=== PATIENT | male | born 1975 | race Caucasian/White ===

== ENCOUNTER 2021-01-09 15:20 | Outpatient (RCR) | payer OTHER, SELFPAY | END 2021-03-24 23:59 | LOC: IMMUN 15:20 | PROVIDERS: PCP Family Medicine; Visit Provider Family Medicine | DX: Z23 Encounter for immunization (principal) | CPT/HCPCS: 0001A; 0002A; 91300 ==

== ENCOUNTER 2021-02-20 09:00 | Outpatient (RCR) | payer OTHER, SELFPAY ==
--- NOTE | 2021-01-30 07:58 | HP.PTEVAL_ITS ---
Patient's Visit Information JORDI NELSON is a 45 year old M referred to Physical Therapy by Dr. Jagjit Harrison MD with a diagnosis of R hip pain. Date of Evaluation: 01/30/21 Physical Therapist: Artemio Ma, EZEQUIELT, OCS, CSCS - Visit Plan Frequency: 3x /Week Duration: 4-6 Weeks Plan: 3x/week for 4-6 weeks for. 1. manual r hip mobs ext adn IR, PROM and leg pull. Stretching hip flexors , HS, quad, piriformis adn rollout prior. Emphasize hip ext rom and anterior hip mobs and leg pull. 2. strengthen R hip stabs. 3. gait training, activitiy modification. 4. TENS with ice as needed. - Subjective R hip pain for last two months. Feels swollen and joint tipped forward. It is consistently there. 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 Icing helps. On feet worse. 7/10 after practice. Improves with sitting. Morning is not as bad. Steps are not a problem, flat ground hurts. 2/10 walking this am. 0/10 in am. Not sure why it started two months ago. Jammed it last by jumping for flyball last fall. Not sure if that hurt it. Sleep is typically OK. Comfortable on couch with knee up. 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 Hurts at work at times but better at desk. Hobbies: kids sports and hunting. 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 Would not golf right now. Could not. Basic ADLs are OK. - Pain R groin Pain Intensity (Out of 10): 1 Pain Intensity Range: 0, 7 Comment: laterally also - Objective R hip pain and antalgia avoiding hip extension in gait pattern by post rotation of pelvis. I gait. I transfers, painful to lift R leg. steps are normal. reflexes 2/3 patella and achilles. Sensation LE WNL to gross light touch. Strength in ankles and knees adn AROM in these joints is WNL. Flexibility in quad is mild deficits adn HS min deficits at -20 90/90 test. AROM R hip flexion 90 pain 125 L. abduction 15 r tight end feel and 25 L. IR 5 R and 15 L pain on R. ext rotation 40 R and 45 L. extension 5 R and 13 L. Pain on R. Weakness apparent due to pain in R hip abductors, extension at 3+, flexiona t 4- vs 4+ in other hip. + SCOUR R. + FADDIR R. slight + JUAN DIEGO. R - Goals Goal 1:: Improve hip ROM R to symmetrical with L without pain or hesitation Goal Time Frame: 4-6 Weeks Goal 2:: Patient walk without gait deviations in community Goal Time Frame: 4-6 Weeks Goal 3:: Pt feel 80% back to normal acitivity Goal Time Frame: 4-6 Weeks Goal 4:: LEFS 65/80 Goal Time Frame: 4-6 Weeks Goal 5:: I management of condition with exercises Goal Time Frame: 4-6 Weeks - Rehabilitation Potential Physical Therapy Diagnosis: R hip pain , possible labral pathology limiting function Rehabilitation Potential: Fair - Anticipated Interventions Patient/Client Instruction: Educate patient on: Condition, Plan of Care For the Purpose of:: To decrease pain, To increase ROM, To improve muscle performance and motor function, To increase tolerance to activity/condition/position, To improve gait and locomotor functions Therapeutic Exercise to Include: Strength training, Flexibilty training, Gait and locomotor training, Passive ROM, Active ROM For the Purpose of:: To decrease pain, To increase ROM, To improve muscle performance and motor function, To increase tolerance to activity/condition/position, To improve gait and locomotor functions Manual Therapy Techniques to Include: Mobilization, Soft tissue mobilization For the Purpose of:: To decrease pain, To increase ROM, To improve nutrient del agnes to tissue, To increase tolerance to activity/condition/position TENS: Yes Cryotherapy (ice pack, ice massage): Yes For the Purpose of:: To decrease pain, To decrease swelling/inflammation Thank you for the opportunity to evaluate your patient. For Medicare and Medicare HMO plans, please review the plan of care and approve it. It will need to be FAXED BACK to us at [phone] for Medicare purposes. For Medicare only, by signing this I certify the plan of care. Please let me know if there are questions or concerns regarding this plan of care. Physician Signature: Date:
--- NOTE | 2021-02-20 09:19 | HP.PTDCSUM_ITS ---
It has been my pleasure to treat JORDI NELSON referred by Dr. Jagjit Harrison MD, with the diagnosis of R hip pain for a total of 9 visit(s). Discharge Date: 02/20/21 Please see the following information for a summary of their discharge status. Subjective: Was doing better but fell Tuesday onto hip in truck adn has hurt since. Was 30% better prior. Was having pain 2-5/10 intermittently and worse with being on feet. This week up to 05/26 since he fell and the same pain. Sleep is better than it had been. Can now sleep on side. Activities nto improving as far as weight bearing goes. 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 No f/u scheduled to doctor. Doing home strength but limmited with pain. R groin Pain Intensity (Out of 10): 2 % Improvement: 30 Objective/Function: ROM no major changes from initial eval. Still very painful and limited in IR adn ER at R hip . Flexion limited to 100 and painful. Weakness in ext, abd, er, ir at 4- and pain with IR/ER. Overall was slowly improving prior to misstep in truck 3 days ago and is now back to no better overall. Clinically is suspicious of labral pathology in R hip Goal 1:: Improve hip ROM R to symmetrical with L without pain or hesitation Goal Progress: Not Progressing Goal 2:: Patient walk without gait deviations in community Goal Progress: Not Progressing Goal 3:: Pt feel 80% back to normal acitivity Goal Progress: Not Progressing Goal 4:: LEFS 65/80 Goal Progress: Not Progressing Goal 5:: I management of condition with exercises Goal Progress: not helping. Plan: back to doctor for next medical step, pt to call adn set up appointment. d/c PT Discharge Comments: Pt to contact doctor due to lack of progress for next appropriate medical step(MRI, ortho?) If there are questions or concerns regarding this patient's physical therapy, please feel free to call me at [phone]. Thank you for the referral of this patient. Sincerely, Artemio Ma, DPT, OCS, CSCS
== END 2021-02-20 12:00 | disposition home or self-care (01) ==
LOC: PT 09:00
PROVIDERS: PCP Family Medicine; Referring Provider Family Medicine; Visit Provider Family Medicine
DX: M25.551 Pain in right hip (principal); J30.9 Allergic rhinitis, unspecified; M54.5 Low back pain
CPT/HCPCS: 97110; 97140; 97162; 97164

== ENCOUNTER → 2021-03-20 10:03 | Outpatient (CLI) | payer OTHER, SELFPAY ==
--- NOTE | 2021-03-20 10:33 | RAD_ITS ---
CLINICAL HISTORY: Male, 45 years old. Right hip pain. PROCEDURE: ARTHROGRAM - RIGHT HIP CONSENT: The procedure as well as benefits and possible complications including bleeding and infection were expanded to the patient. Informed consent was obtained. FLUOROSCOPY TIME (if supplied): (48 seconds) minutes/seconds Injection Information: 10 cc of dilute MRI contrast. Number of images obtained: 1 TECHNIQUE: (All elements of maximal sterile barrier technique followed, including US elements as applicable) The patient was in the supine position. The overlying skin was prepped and draped in usual sterile fashion. Following local anesthetic application and under direct fluoroscopic guidance, a 22-gauge spinal needle was placed into the hip joint. 2 cc of ISOVUE 300 was injected for confirmation. Following this, 10 cc of dilute MRI contrast was injected. The patient tolerated the procedure well. MRI will follow. RAD/Arthrogram Hip w/ MRI IMPRESSION: Successful right hip arthrogram for MRI examination. Electronically Signed: Alejandro Dent MD at 11:14 EDT , Service support ,
--- NOTE | 2021-03-20 10:43 | MRI_ITS ---
STUDY: MR RIGHT HIP ARTHROGRAPHY REASON FOR EXAM: Right hip pain for 2-3 months, no specific injury. TECHNIQUE: Standardized fat and water weighted pulse sequences were obtained in all 3 orthogonal planes after intra-articular instillation of 0.08 mL of dilute gadolinium. COMPARISON: Fluoroscopic image from arthrogram preceding MRI. FINDINGS: There is mild chondral thinning of the right hip joint (T1 sagittal image 9). Normal acetabulum. There is a tear of the anterosuperior labrum (JUAN DIEGO images 10, 11). There is avascular necrosis of the femoral head with mild bone edema of the femoral head and neck (T2 coronal images 14-17; T2 sagittal images 7-12). Normal gluteus minimus, medius and iliopsoas tendons and distal insertions. There is no trochanteric, iliopsoas or iliopectineal bursitis. Normal visualized superior and inferior pubic rami. Normal ischial tuberosity. Normal origin of the hamstring tendons. Normal visualized iliac wing. Normal visualized soft tissue structures of the pelvis. MRI/Lower Ext/Jt Only/W Contrast IMPRESSION: Avascular necrosis of the right femoral head. Mild chondral thinning of the right hip joint. Anterosuperior labral tear. Electronically Signed: Sam Blanchard MD at 13:11 EDT Tel , Service support ,
== END ==
PROVIDERS: PCP Family Medicine; Referring Provider Physician Assistant Surgical; Visit Provider Physician Assistant Surgical
DX: S73.191A Other sprain of right hip, initial encounter (principal)
CPT/HCPCS: 27093; 73722; 77002; A9575; Q9967

== ENCOUNTER 2022-11-17 11:00 | Outpatient (RCR) | payer OTHER, SELFPAY ==
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
--- NOTE | 2022-10-22 16:09 | HP.PTREVAL_ITS ---
NIC VELIZ, It has been my pleasure to treat JORDI NELSON over the last 11 visits for S/P RIGHT THR. Please see the progress note below for an update on the physical therapy plan of care! Subjective: I dont really have pain, its discomfort Objective/Function: R hip pain ranges from 2-4/10. TUG= 8.37. Pt can perform 16 sit to stands in 30 sec. Hip MMT: R flex= 32, L flex= 36 #F. Pt is still limited with functional activity such as deer hunting and catching for his daughter in softball. Plan Plan: Cont to focus on strengthening, balance activity, and functional activity to aid with restoring pt back to his premorbid level Balance/Gait/Functional tests - Balance/Special Test Scores Lower Extremity Functional Score: 46 TUG Test Time Seconds: 20.88 Tug Test: 20-30sec.=variable mobility 30 Second Chair Rise Test Seconds: 9 WOMAC Total Score: 46 WOMAC Percentage: 52.0900 Goals Goal 1:: PATIENT WILL COMPLETE 15 STANDS IN 30 SECS TO DEMONSTRATE IMPROVED FUNCTIONAL STRENGTH Goal Time Frame: 6-8 Weeks Goal Progress: Goal Met Goal 2:: PATIENT WILL COMPLETE TUG IN < 10 SECS WITHOUT AD TO DEMONSTRATE IMPROVED GAIT STABILITY Goal Time Frame: 6-8 Weeks Goal Progress: Goal Met Goal 3:: PATIENT WILL BE INDEP WITH A HEP FOR CONTINUED IMPROVEMENT ONCE FORMAL PHYSICAL THERAPY CONCLUDES. Goal Time Frame: 6-8 Weeks Goal Progress: Progressing Goal 4:: PATIENT WILL DEMONSTRATE INDEP AND SAFE GAIT ON LEVEL SURFACES X > 600 FT, AND UP AND DOWN STEPS (ONE FLIGHT) RECIPRICALLY WITH ONE HR OR LESS TO IMPROVE ACTIVITY TOLERANCE Goal Time Frame: 6-8 Weeks Goal Progress: Goal Met Goal 5:: PATIENT WILL ASCEND AND DESCEND SINGLE CURB WITHOUT ASSISTIVE DEVICE SAFELY AND INDEP'LY TO HELP REINTEGRATE INTO COMMUNITY. Goal Time Frame: 6-8 Weeks Goal Progress: Goal Met Goal 6:: Increase R hip strength x 5#F to aid with return to functional activbity Goal Time Frame: 4-6 Weeks Goal Progress: New goals Anticipated Interventions Patient/Client Instruction: Educate patient on: Condition, Plan of Care, Risk Factors For the Purpose of:: To improve self management Therapeutic Exercise to Include: Strength training, Endurance training, Balance training, Body mechanics, Flexibilty training, Gait and locomotor training, Neuromotor development For the Purpose of:: To decrease pain, To increase ROM, To improve muscle pe rformance and motor function, To increase tolerance to activity/condition/position, To improve ability of physical actions for home/community/work/leisure, To improve gait and locomotor functions Cryotherapy (ice pack, ice massage): Yes For the Purpose of:: To decrease pain, To decrease swelling/inflammation Please do not hesitate to contact me at [phone] by phone or if you have questions or concerns regarding this new plan of care! Sincerely, Francis Kelley, PT, ATC
--- NOTE | 2022-11-17 13:14 | HP.PTDCSUM ---
It has been my pleasure to treat JORDI NELSON referred by NIC VELIZ, with the diagnosis of S/P RIGHT THR for a total of 19 visit(s). Discharge Date: 11/17/22 Please see the following information for a summary of their discharge status. Subjective: PATIENT REPORTS HE IS 100% BETTER COMPARED TO A YEAR AGO AND 85% BACK TO WHERE HE WANTS TO BE. HE REPORTS HIS R HIP/THIGH GETS SORE BUT NOT PAINFUL. PATIENT REPORTS HE CAN PLAY BASKETBALL AND SOFTBALL WITH DAUGHTERS NOW. RIGHT HIP Pain Intensity (Out of 10): 0 % Improvement: 85 Objective/Function: PATIENT WAS SEEN TODAY FOR RE-ASSESSMENT OF PROGRESS TOWARD THE SET PT GOALS AND THE NEED FOR FURTHER PHYSICAL THERAPY VS READINESS FOR DISCHARGE. ALL PT GOALS HAVE BEEN MET AND PATIENT IS APPROPRIATE FOR DISCHARGE. PATIENT AGREEABLE. UPON EXAM TODAY: THIS PATIENT AMBULATES INDEP'LY INTO PT TODAY WITHOUT ANY ASSISTIVE DEVICES. WOMAC score: 9/96. TU.78 SEC. 30 SEC STS TEST: 20. R knee flex MMT; 5/5. R knee ext MMT 5/5. R hip MMT 5/5. R ankle MMT 5/5. Palpation: R LE INCISIONS LOOK GOOD WITHOUT ANY SIGNS OF INFECTION. Goal 1:: PATIENT WILL COMPLETE 15 STANDS IN 30 SECS TO DEMONSTRATE IMPROVED FUNCTIONAL STRENGTH Goal Progress: Goal Met Goal 2:: PATIENT WILL COMPLETE TUG IN < 10 SECS WITHOUT AD TO DEMONSTRATE IMPROVED GAIT STABILITY Goal Progress: Goal Met Goal 3:: PATIENT WILL BE INDEP WITH A HEP FOR CONTINUED IMPROVEMENT ONCE FORMAL PHYSICAL THERAPY CONCLUDES. Goal Progress: Goal Met Goal 4:: PATIENT WILL DEMONSTRATE INDEP AND SAFE GAIT ON LEVEL SURFACES X > 600 FT, AND UP AND DOWN STEPS (ONE FLIGHT) RECIPRICALLY WITH ONE HR OR LESS TO IMPROVE ACTIVITY TOLERANCE Goal Progress: Goal Met Goal 5:: PATIENT WILL ASCEND AND DESCEND SINGLE CURB WITHOUT ASSISTIVE DEVICE SAFELY AND INDEP'LY TO HELP REINTEGRATE INTO COMMUNITY. Goal Progress: Goal Met Goal 6:: Increase R hip strength x 5#F to aid with return to functional activbity Goal Progress: Goal Met Plan: D/C TO INDEP EX. If there are questions or concerns regarding this patient's physical therapy, please feel free to call me at [phone]. Thank you for the referral of this patient. Sincerely, Amy Sousa, PT, Cert MDT Balance/Gait/Functional tests - Balance/Special Test Scores Lower Extremity Functional Score: 59 TUG Test Time Seconds: 6.78 Tug Test: <10 sec.=free mobile 30 Second Chair Rise Test Seconds: 20 WOMAC Total Score: 9 WOMAC Percentage: 90.6300
== END 2022-11-17 19:00 | disposition home or self-care (01) ==
LOC: PT 11:00
PROVIDERS: PCP Family Medicine
DX: Z47.1 Aftercare following joint replacement surgery (principal); Z96.641 Presence of right artificial hip joint
CPT/HCPCS: 97110; 97162; 97164; 97530